=== PATIENT | female | born 1960 | race Caucasian/White ===

== ENCOUNTER 2019-04-05 06:14 | Emergency (ER) | payer BC ==
[2019-04-05 06:23] VITALS: BP 122/80; PULSE 70
[2019-04-05] MEDS ORDERED: Ketorolac 60 MG/2 ML SDV IM ONE (06:56)
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
--- NOTE | 2019-04-05 07:43 | CRLCR ---
INDICATION: LEFT SIDED RIB PAIN COMPARISON: March, 2 View Chest. Findings: The lungs are clear. Pulmonary vascularity, mediastinum and cardiac silhouette are within normal limits. No effusions and no pneumothorax. Osseous structures appear unremarkable. Impression: No evidence of acute cardiopulmonary disease. Dictated by: Mykel Brown MD @ 04/05/2019 07:41:46 (Electronically Signed)
== END 2019-04-05 07:53 | disposition home or self-care (01) ==
LOC: JP.ED 06:14
DX: S20.212A Contusion of left front wall of thorax, initial encounter (principal); F17.210 Nicotine dependence, cigarettes, uncomplicated; Z88.1 Allergy status to other antibiotic agents; X58.XXXA Exposure to other specified factors, initial encounter
CPT/HCPCS: 71046; 96372; 99283; J1885

== ENCOUNTER 2019-10-24 16:47 | Emergency (ER) | payer BC ==
[2019-10-24 17:09] VITALS: BP 137/79; PULSE 117
--- NOTE | 2019-10-24 17:40 | EDM.PDOC ---
ED HPI GENERAL MEDICAL PROBLEM - General Chief Complaint: Lower Extremity Injury/Pain Stated Complaint: LEFT LEG INJURY Time Seen by Provider: 10/24/19 17:15 Source of Information: Reports: Patient History Limitations: Reports: No Limitations - History of Present Illness INITIAL COMMENTS - FREE TEXT/NARRATIVE: Erum presents today for complaints of left knee pain after her dog struck her knee while he was running. She states she felt a crack/pop when he struck her. She reports pain with ambulation. She denies any other injury or pain. She denies fever, chills, nausea, vomiting or other concerns. 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: Musculoskeletal History: Reports: Back Pain, Chronic, Other (See Below) Other Musculoskeletal History: right knee pain Neurological History: Reports: None Psychiatric History: Reports: None Hematologic History: Reports: None Immunologic History: Reports: None Oncologic (Cancer) History: Reports: None Dermatologic History: Reports: None - Past Surgical History Head Surgeries/Procedures: Reports: None Musculoskeletal Surgical History: Reports: ORIF Other Musculoskeletal Surgeries/Procedures:: right wrist Social & Family History - Family History Family Medical History: Noncontributory - Tobacco Use Smoking Status *Q: Current Every Day Smoker Years of Tobacco use: 40 Packs/Tins Daily: 1 - Caffeine Use Caffeine Use: Reports: Soda - Recreational Drug Use Recreational Drug Use: No Review of Systems - Review of Systems Review Of Systems: See Below Constitutional: Reports: No Symptoms Respiratory: Reports: No Symptoms Cardiovascular: Reports: No Symptoms Musculoskeletal: Reports: Leg Pain, Other (left knee pain ) Skin: Reports: No Symptoms. Denies: Bruising, Rash, Erythema, Wound, Lesions Neurological: Reports: No Symptoms Psychiatric: Reports: No Symptoms ED EXAM, GENERAL - Physical Exam Exam: See Below Exam Limited By: No Limitations General Appearance: Alert, WD/WN, No Apparent Distress Head: Atraumatic, Normocephalic Respiratory/Chest: No Respiratory Distress, Lungs Clear, Normal Breath Sounds, No Accessory Muscle Use, Chest Non-Tender Cardiovascular: Normal Peripheral Pulses, Regular Rate, Rhythm, No Edema, No Gallop, No Murmur, No Rub Peripheral Pulses: 2+: Radial (L), Radial (R) Extremities: No Pedal Edema, Normal Capillary Refill, Leg Pain, Limited Range of Motion, Other (Decreased ROM to left knee, increased pain with internal rotation. Negative drawer sign. No edema or ecchymosis noted. ). No: Pallor, Redness Neurological: Alert, Oriented, Normal Cognition, Normal Gait, Normal Reflexes, No Motor/Sensory Deficits Psychiatric: Normal Affect, Normal Mood Skin Exam: Warm, Dry, Intact, Normal Color, No Rash ED TRAUMA EXTREMITY PROCEDURES - Additional/Other Procedure(s) Other (Free Text) Procedure(s): Patient provided knee immobilizer for left knee strain Course - Vital Signs Last Recorded V/S: Last Vital Signs Temp 36.3 C 10/24/19 17:07 Pulse 117 H 10/24/19 17:07 Resp 20 10/24/19 17:07 BP 137/79 10/24/19 17:07 Pulse Ox 98 10/24/19 17:07 - Orders/Labs/Meds Orders: Active Orders 24 hr Category Date Time Status Knee 3V Lt [CR] Stat Exams 10/24/19 17:32 Taken - Radiology Interpretation Free Text/Narrative:: Left knee x-ray reviewed, wet read shows no acute findings. Radiologist read pending. Patient needs to follow up with [facility] in the next 10 to 14 days. Departure - Departure Time of Disposition: 18:47 Disposition: Home, Self-Care 01 Clinical Impression: Strain of knee and leg, left - Discharge Information *PRESCRIPTION DRUG MONITORING PROGRAM REVIEWED*: Not Applicable *COPY OF PRESCRIPTION DRUG MONITORING REPORT IN PATIENT AMISH: Not Applicable Instructions: Muscle Strain, [id number] Referrals: PCP,None [Primary Care Provider] - Forms: ED Department Discharge Additional Instructions: Rest, ice, elevate and use lilia wrap to left knee. Wear knee brace at all times you are up. Take ibuprofen 800mg by mouth three times a day as needed for pain. You can also take tylenol 1000mg by mouth three times a day as needed for pain. Follow up with [facility] for a recheck. Sepsis Event Note - Evaluation Sepsis Screening Result: No Definite Risk - Focused Exam Vital Signs: Vital Signs Temp Pulse Resp BP Pulse Ox 10/24/19 17:07 36.3 C 117 H 20 137/79 98 Date Exam was Performed: 10/24/19 Time Exam was Performed: 19:03 - My Orders Last 24 Hours: My Active Orders 10/24/19 17:32 Knee 3V Lt [CR] Stat - Assessment/Plan Last 24 Hours: My Active Orders 10/24/19 17:32 Knee 3V Lt [CR] Stat Assessment:: Strain of left knee Plan: Rest, ice, elevate and use lilia wrap to left knee. Wear knee brace at all times you are up. Take ibuprofen 800mg by mouth three times a day as needed for pain. You can also take tylenol 1000mg by mouth three times a day as needed for pain. Follow up with [facility] for a recheck.
--- NOTE | 2019-10-27 09:33 | CR ---
Knee 3V Lt CLINICAL HISTORY: Pain, injury FINDINGS: No acute fracture or dislocation is noted. There are no osseous lesions. Articular surfaces are smooth. Impression: Negative
== END 2019-10-24 19:04 | disposition home or self-care (01) ==
LOC: JP.ED 16:47
DX: S86.912A Strain of unspecified muscle(s) and tendon(s) at lower leg level, left leg, initial encounter (principal); Z88.1 Allergy status to other antibiotic agents; F17.210 Nicotine dependence, cigarettes, uncomplicated; W54.1XXA Struck by dog, initial encounter
CPT/HCPCS: 73562-26-LT; 73562-LT; 99283

== ENCOUNTER 2021-08-02 07:12 | Emergency (ER) | payer BC ==
[2021-08-02 07:31] VITALS: BP 155/81; PULSE 125
[2021-08-02] MEDS ORDERED: Lidocaine 1% with EPINEPHrine 1:100,000 50 ML MDV SUBCUT STA (08:13)
[2021-08-02] MEDS ORDERED: Diphtheria,Pertussis(Acell),Tetanus Vaccine 0.5 ML Syringe IM ONE (08:13)
== END 2021-08-02 09:33 | disposition home or self-care (01) ==
LOC: JP.ED 07:12
DX: S01.01XA Laceration without foreign body of scalp, initial encounter (principal); Z23 Encounter for immunization; Z72.0 Tobacco use; Z88.1 Allergy status to other antibiotic agents; W00.0XXA Fall on same level due to ice and snow, initial encounter
CPT/HCPCS: 12002; 90471; 90715; 99282; 99282-25

== ENCOUNTER 2023-04-18 08:54 | Emergency (ER) | payer BC ==
[2023-04-18] MEDS ORDERED: Ketorolac 30 MG/ML SDV IVPUSH ONE (09:51)
[2023-04-18] MEDS ORDERED: Lactated Ringers 1,000 ML IV ONE (09:51)
[2023-04-18 10:43] LABS: CORONAVIRUS COVID-19 NAA NEGATIVE (NEGATIVE); INFLUENZA A NAA NEGATIVE (NEGATIVE); INFLUENZA B NAA NEGATIVE (NEGATIVE); RESPIRATORY SYNCYTIAL VIR NAA NEGATIVE (NEGATIVE)
[2023-04-18] MEDS ORDERED: diphenhydrAMINE 50 MG/ML SDV IVPUSH ONE (11:31)
[2023-04-18] MEDS ORDERED: Prochlorperazine 10 MG/2 ML SDV IVPUSH ONE (11:31)
[2023-04-18 11:54] LABS: BASOPHILS ABSOLUTE AUTO 0.03 K/uL (0.00-0.10); BASOPHILS PERCENT AUTO 0.6 % (0.1-1.3); EOSINOPHILS PERCENT AUTO 0.2 % (0.0-5.4); HEMOGLOBIN 14.7 g/dL (11.2-15.5); IMMATURE GRAN PERCENT AUTO 0.2 % (0.0-0.7); LYMPHOCYTES ABSOLUTE AUTO 1.78 K/uL (0.8-3.3); LYMPHOCYTES PERCENT AUTO 38.4 % (11.4-47.7); MEAN CORPUSCULAR HEMOGLOBIN 30.2 pg (31.6-35.5); MEAN CORPUSCULAR HGB CONC 33.4 g/dL (31.6-35.5); MEAN CORPUSCULAR VOLUME 90.3 fL (81.4-99.0); MONOCYTES ABSOLUTE AUTO 0.57 K/uL (0.20-0.90); MONOCYTES PERCENT AUTO 12.3 % (3.3-12.6); NEUTROPHILS ABSOLUTE AUTO 2.24 K/uL (1.0-7.6); NEUTROPHILS PERCENT AUTO 48.3 % (40.0-78.1); PLATELET COUNT,PLT 155 K/uL (130-375); RED BLOOD CELL COUNT 4.87 M/uL (3.77-5.24); WHITE BLOOD CELL COUNT,WBC 4.6 K/uL (3.2-11.0)
[2023-04-18 11:57] LABS: EOSINOPHILS ABSOLUTE AUTO 0.01 K/uL (0.00-0.40); IMMATURE GRAN ABSOLUTE AUTO 0.01 K/uL (0.00-0.23)
[2023-04-18 12:15] LABS: A/G RATIO 0.9 (1.2-2.2); ALANINE AMINOTRANSFERASE,ALT 23 U/L (12-78); ALBUMIN 3.3 g/dL (3.4-5.0); ALKALINE PHOSPHATASE 68 U/L (46-116); ASPARTATE AMNIOTRANSFERASE,AST 30 U/L (15-37); BILIRUBIN TOTAL 0.4 mg/dL (0.2-1.0); BLOOD UREA NITROGEN,BUN 15 mg/dL (7-18); CALCIUM 8.5 mg/dL (8.5-10.1); CARBON DIOXIDE,CO2 29 mmol/L (21-32); CHLORIDE,CL 100 mmol/L (100-108); CREATININE 0.7 mg/dL (0.6-1.0); EST CRCL DRUG DOSING (CG) 73.44 mL/min; ESTIMATED GFR 99 mL/min (>60); GLUCOSE RANDOM 78 mg/dL (74-106); PROTEIN TOTAL,TP 6.8 g/dL (6.4-8.2); SODIUM,NA 138 mmol/L (140-148)
[2023-04-18] MEDS ORDERED: Sodium Chloride 0.9% 10 ML Syringe FLUSH ONE (13:19)
[2023-04-18] MEDS ORDERED: Sodium Chloride 0.9% 100 ML IV SCH (13:30)
[2023-04-18] MEDS ORDERED: Iopamidol 755 Mg/ML 100 ML Bottle IV SCH (13:30)
[2023-04-18 15:12] VITALS: BP 117/84; PULSE 81
== END 2023-04-18 15:31 | disposition home or self-care (01) ==
LOC: JP.ED 08:54
DX: R51.9 Headache, unspecified (principal); F17.210 Nicotine dependence, cigarettes, uncomplicated; Z88.1 Allergy status to other antibiotic agents; Z20.822 Contact with and (suspected) exposure to COVID-19
CPT/HCPCS: 0241U; 36415; 70496; 70496-26; 71046; 71046-26; 72220; 72220-26; 80053; 83605; 85025; 86140; 96361; 96374; 99283; 99284-25; J1885; J3490; J7120; Q9967

== ENCOUNTER 2024-07-06 09:56 | Emergency (ER) | payer OTHER, BC ==
[2024-07-06 10:16] VITALS: BP 127/80; PULSE 100
[2024-07-06] MEDS: Cyclobenzaprine 10 MG Tab PO ONE (11:05)
[2024-07-06] MEDS: Ketorolac 30 MG/ML SDV IM ONE (11:06)
[2024-07-06] MEDS ORDERED: HYDROmorphone 1 MG/ML Syringe IM ONE (11:28)
== END 2024-07-06 12:54 | disposition home or self-care (01) ==
LOC: JP.ED 09:56
DX: M54.50 Low back pain, unspecified (principal); Z79.899 Other long term (current) drug therapy; Z88.1 Allergy status to other antibiotic agents
CPT/HCPCS: 96372; 99283; 99284; A9270; J1885